=== PATIENT | female | born 1970 | race Caucasian/White ===

== ENCOUNTER 2020-03-14 12:43 | Outpatient (CLI) | payer OTHER, SELFPAY ==
--- NOTE | ~2020-03-14 | CT_ITS ---
EXAMINATION: CT brain wo con DATE: 03/14/2020 13:42 INDICATION: Left head, facial, arm and leg hemiparesthesia for 3 days TECHNIQUE: Computed tomography (CT) of the head was performed without intravenous contrast. The mA wa s adjusted according to patient size. Iterative reconstruction technique was employed. Exam dose: 60 5.33 mGy-cm total exam DLP. COMPARISON: None FINDINGS: No intracranial mass lesion or hemorrhage or cerebrovascular accident, midline shift or mas s effects is detected. Normal ventricular size. Mild bilateral carotid siphon internal carotid artery calcifications. No subdural or epidural hematom a. No fracture or bone destruction of the cranial vault. There is soft tissue thickening of the ethmoid air cells, left greater than right. Remaining paranasa l sinuses and the mastoid air cells are normally developed and aerated. IMPRESSION: No acute intracranial finding Cerebral atherosclerosis Reviewed, dictated and finalized at [facility]. Reviewed, dictated and finalized at [facility].
== END 2020-03-14 12:44 | disposition home or self-care (01) ==
PROVIDERS: PCP Family Medicine; Visit Provider Family Medicine
DX: R20.0 Anesthesia of skin (principal); I67.2 Cerebral atherosclerosis
CPT/HCPCS: 70450

== ENCOUNTER 2020-03-17 08:50 | Inpatient (IN) | payer OTHER, SELFPAY ==
[2020-03-17] VITALS (9 sets, daily range): BP systolic 121–173; BP diastolic 63–97; PULSE 87–109; RESP 15–20; TEMP 36.6–37.1; O2SAT 94–100; BMI 19.0; BMI 19.1
--- NOTE | ~2020-03-17 | MR_ITS ---
EXAMINATION: MR cervical spine wo/w con DATE: 03/19/2020 09:34 INDICATION: Left hemiparesis. Diplopia. TECHNIQUE: Magnetic resonance imaging (MRI) of the cervical spine was performed without and with 10 m L MultiHance intravenous contrast. Sequences included sagittal and axial T2-weighted FSE, sagittal T2 -weighted FS FSE, and sagittal and axial T1-weighted FSE. Postcontrast sequences included sagittal an d axial T1-weighted FS FSE. COMPARISON: None FINDINGS: There is kyphosis of cervical spine. Vertebral body heights are normal. There is mildly dec reased disc height at C4-C5, C5-C6, and C6-C7. The spinal cord signal intensity is normal. The follow ing disc levels are specifically discussed: C2-C3: The disc does not extend beyond the endplate margin. There is no uncovertebral joint osteoarth ritis. There is mild bilateral facet joint osteoarthritis. There is no neural foraminal stenosis. The re is no central canal stenosis. C3-C4: The disc does not extend beyond the endplate margin. There is mild left uncovertebral joint os teoarthritis. There is no facet joint osteoarthritis. There is mild left neural foraminal stenosis. T here is no central canal stenosis. C4-C5: The disc does not extend beyond the endplate margin. There is mild bilateral uncovertebral fadumo nt osteoarthritis. There is mild right facet joint osteoarthritis. There is no neural foraminal steno sis. There is no central canal stenosis. C5-C6: The disc is bulging. There is moderate bilateral uncovertebral joint osteoarthritis. There is no facet joint osteoarthritis. There is mild bilateral neural foraminal stenosis. There is mild centr al canal stenosis with ventral indentation of the spinal cord. C6-C7: The disc is bulging. There is mild bilateral uncovertebral joint osteoarthritis. There is mild bilateral facet joint osteoarthritis. There is no neural foraminal stenosis. There is mild central c anal stenosis. C7-T1: The disc does not extend beyond the endplate margin. There is no uncovertebral joint osteoarth ritis. There is mild bilateral facet joint osteoarthritis. There is no neural foraminal stenosis. The re is no central canal stenosis. IMPRESSION: 1. Normal spinal cord. 2. Mild cervical spondylosis. Reviewed, dictated and finalized at [facility].
--- NOTE | ~2020-03-17 | MR_ITS ---
EXAMINATION: MR brain/brain stem wo/w con DATE: 03/17/2020 14:37 INDICATION: Diplopia. Left hemiparesis for one week. TECHNIQUE: Magnetic resonance imaging (MRI) of the brain and brainstem was performed without and with 10 mL MultiHance intravenous contrast. Sequences included sagittal and axial T1-weighted FSE, axial diffusion-weighted FS EPI, axial T2*-weighted GRE, axial T2-weighted FLAIR Propeller, and axial T2-we ighted Propeller. Postcontrast sequences included axial and coronal T1-weighted FSE. Apparent diffusi on coefficient (ADC) maps were created. COMPARISON: Head CT 03/17/2020 FINDINGS: There are scattered areas of nonspecific increased T2-weighted signal intensity in the cere bral white matter. There is increased T2-weighted signal intensity in the right midbrain. No abnormal contrast enhancement. There is no acute ischemic infarct or intracranial hemorrhage. The ventricles are normal in size. There is mild mucosal thickening in the ethmoid sinuses. The orbits are normal. T he mastoid air cells are normal. IMPRESSION: 1. Increased T2-weighted signal intensity in the right midbrain, likely a subacute or chronic infarct . 2. Mild nonspecific cerebral white matter disease, which likely represents chronic small vessel ische ford disease. Reviewed, dictated and finalized at location [facility]. IMPRESSION: 1. Increased T2-weighted signal intensity in the right midbrain, likely a subac [place] or chronic infarct. 2. Mild nonspecific cerebral white matter disease, which likely represents attendance secretary christine small vessel ischemic disease.
--- NOTE | ~2020-03-17 | CT_ITS ---
EXAMINATION: CTA brain carotid DATE: 03/17/2020 10:13 INDICATION: Left-sided numbness. Diplopia. TECHNIQUE: Computed tomographic angiography (CTA) of the head was performed without and with 100 mL O mnipaque-350 intravenous contrast. CTA of the neck was performed with intravenous contrast. Automated exposure control and iterative reconstruction technique were employed. The dose-length product was 1 686.26 mGy-cm. Maximum intensity projection and volume rendered 3D-reconstructions were created by kim montana technologist on a separate workstation. COMPARISON: Head CT 03/14/2020 FINDINGS: HEAD CTA: There is no intracranial hemorrhage, acute infarction, or abnormal intracranial mass lesion . The ventricles are normal in size. There is mild mucosal thickening in the paranasal sinuses. The o rbits are normal. The mastoid air cells are normal. The vertebral arteries are codominant. There is n o significant stenosis of basilar artery or the posterior cerebral arteries. The posterior communicat ing arteries are normal. There is no significant stenosis of the intracranial internal carotid arteri es or anterior or middle cerebral arteries. Anterior communicating artery is normal. There is no aneu rysm. NECK CTA: Emphysema is noted. There are bilateral breast implants. There are no pathologically enlarg ed lymph nodes. There is no significant stenosis of the vertebral arteries. There is mild plaque in t he proximal external carotid arteries. There is 0% stenosis of the proximal right internal carotid ar jocelyn relative to normal distal artery lumen diameter (NASCET criteria). There is 0% stenosis of the p roximal left internal carotid artery relative to normal distal artery lumen diameter. There is modera te cervical spondylosis. IMPRESSION: 1. Normal brain. No aneurysm or significant intracranial arterial stenosis. 2. 0% stenosis of the proximal internal carotid arteries relative to normal distal artery lumen diame ters (NASCET criteria). Reviewed, dictated and finalized at location [facility]. IMPRESSION: 1. Normal brain. No aneurysm or significant intracranial arterial stenosis. 2. 0% stenosis of the proximal internal carotid arteries relative to normal dis jone artery lumen diameters (NASCET criteria).
--- NOTE | 2020-03-17 09:29 | ED.NEUROSD ---
HPI - Neuro Symptoms/Deficit General Chief Complaint: Neuro Symptoms/Deficit Stated Complaint: Numbness Left Side Time Seen by Provider: 03/17/20 09:20 History of Present Illness HPI Narrative: Patient presents with her for numbness on the left side for 1 week and double vision today. She had a CAT scan on the of the brain which shows calcifications in the cerebral arteries. The numbness on her left side is been for 1 week. Today she woke up with double vision. If he keeps 1 eye shot then she can see better. She has no history of MS.. She has not been sick. She smokes cigarettes, she does not drink alcohol, she does not do drugs. Her only surgery is breast augmentation. Onset (ago): day(s) Timing confirmed by: spouse Location: left arm, left leg and other (Vision) History of same: No Severity: moderate Quality: numb Relieving factors: none Exacerbating factors: none Context: gradual onset On Anticoagulants: No Associated symptoms: denies other symptoms Treatments Prior to Arrival: none Related Data Home Medications Medication Instructions Recorded Confirmed ferrous sulfate [Slow Fe] 142 mg PO DAILY 03/17/20 03/17/20 fluticasone propion-salmeterol 1 inh INHALATION Q12H 03/17/20 03/17/20 [Advair Diskus] levothyroxine 50 mcg PO WEEKLY 03/17/20 03/17/20 Allergies Allergy/AdvReac Type Severity Reaction Status Date / Time Sulfa (Sulfonamide Allergy Unknown Rash Verified 03/17/20 12:04 Antibiotics) Review of Systems Review of Systems: Narrative: CONSTITUTIONAL: Denies fever, chills, or sweats. EYES: She has visual changes, redness, or discharge. ENT: Denies rhinorrhea, congestion, sore throat, or otalgia. CARDIOVASCULAR: Denies chest pain, palpitations, or edema. RESPIRATORY: Denies cough or dyspnea. GASTROINTESTINAL: Denies abdominal pain, nausea, vomiting, or diarrhea. GENITOURINARY: Denies dysuria or hematuria. SKIN: Denies rash or itching. MUSCULOSKELETAL: Denies back pain, joint pain, or myalgia. NEUROLOGIC: Denies headache, but she does have numbness on the left side. . All systems reviewed & are unremarkable except as noted in HPI and below PMFSH Past Medical History Medical History (Updated 03/17/20 @ 09:57 by Maggie Alexander MD) Essential (primary) hypertension Hyperlipidemia Hypothyroidism, unspecified Menometrorrhagia Nicotine dependence, unspecified, uncomplicated Relies on partner vasectomy for contraception Surgical History Surgical History History of breast augmentation Social History Social History Smoking packs per day: 2 Smoking cigarettes per day: 40.0 Years smoked: 35 Smoking pack-years: 70.00 Smoking status: Current every day smoker Tobacco type: cigarettes Second hand tobacco smoke exposure: Yes Smoking end date: 69 Alcohol intake: current Drinks per week: 1 Substance use: never Substance use type: does not use Additional living arrangements comments: Gender identity (if verbalized by the patient): Female Sexual Orientation (if Verbalized by the Patient): Straight or Heterosexual Spiritual care concerns: No Agree to blood products: No Exam Narrative: Exam Narrative: GENERAL: Well-appearing, well-nourished, and in no acute distress. She keeps closing the left eye. HEAD: Normocephalic, atraumatic. EYES: PERRLA and EOMI. ENT: Nares clear, no rhinorrhea or epistaxis. Mucous membranes moist. NECK: Supple. CHEST: Clear to auscultation. No respiratory distress. HEART: Regular rate and rhythm. No murmur heard. Normal peripheral pulses. ABDOMEN: Soft, nontender, nondistended, normal active bowel sounds. EXTREMITIES: Normal range of motion. No edema. SKIN: Warm, dry, no rash. NEURO: No focal deficits. Alert and oriented x3. PSYCH: Normal mood and affect. Course Vital Signs Vital signs: Vital Signs Tem
[2020-03-17] MEDS: methylPREDNISolone SOD SUCC 125 MG VIAL IV PUSH (09:32)
[2020-03-17 09:40] LABS: Basophils Absolute Auto 0.1 K/mm3 (0.0-0.1); Eosinophils Absolute Auto 0.4 K/mm3 (0-0.3); Eosinophils Percent Auto 4.7 % (0-4.4); Hematocrit 51.1 % (37.0-47.0); Hemoglobin 16.6 g/dL (12.0-15.0); Immature Granulocyte Absolute 0.02 K/mm3 (0.00-0.031); Immature Granulocyte Percent A 0.3 % (0-0.5); Lymphocytes Absolute Auto 1.72 K/mm3 (0.9-3.2); Lymphocytes Percent Auto 22.4 % (18.3-44.2); Mean Corpuscular HGB Conc 32.5 g/dl (32-36); Mean Corpuscular Hemoglobin 30.2 pg (26-34); Mean Corpuscular Volume 92.9 fl (80-100); Mean Platelet Volume 10.9 fl (7.4-10.4); Monocytes Absolute Auto 0.6 K/mm3 (0.1-0.6); Monocytes Percent Auto 7.3 % (2.6-8.5); Neutrophils Absolute Auto 4.9 K/mm3 (1.3-6.7); Neutrophils Percent Auto 64.3 % (45.5-73.1); Platelet Count Result 250 k/mm3 (150-375); Red Cell Distribution Width 13.2 % (11.5-14.5); White Blood Count 7.7 K/mm3 (4.5-10.0)
[2020-03-17 09:54] LABS: Alanine Aminotransferase 14 U/L (4-35); Albumin Level 4.5 g/dL (3.5-5.1); Alkaline Phosphatase 63 U/L (38-126); Anion Gap 7 mmol/L (8-16); Aspartate Amino Transferase 23 U/L (14-36); Bilirubin,Total 0.2 mg/dL (0.2-1.3); Blood Urea Nitrogen 14 mg/dL (7-17); Calcium 9.5 mg/dL (8.4-10.2); Carbon Dioxide 29 mmol/L (22-30); Chloride 103 mmol/L (98-107); Estimated CRCL calculation 60 ml/min; Estimated Glomerular Filt Rate > 60; Glucose 107 mg/dL (65-105); Potassium 4.2 mmol/L (3.4-5.0); Sodium 139 mmol/L (137-145)
[2020-03-17 09:56] LABS: D Dimer 0.45 ug/mL (<0.48)
[2020-03-17 10:00] LABS: Estimated CRCL calculation 60 ml/min; Estimated Glomerular Filt Rate > 60
--- NOTE | 2020-03-17 12:02 | ADMGEN ---
This patient, Love Blake, was admitted to 2 Medical Room 241-01. Patient/family oriented to hospital policies and general routines including ID bracelet, bed and alarms, visiting hours, pain management, procedures, bathroom and other care routines, personal items, smoking policy, room service/diet, and visiting hours. Valuables list has been completed. Information on how to activate the Rapid Response Team has been discussed. Patient/Family are encouraged to report perceived risks to care and to ask questions if they do not understand what they are told or what they should do.
--- NOTE | 2020-03-17 17:00 | WPDNEURCNPN ---
Assessment and Plan Assessment and plan (1) Double vision: Code(s): H53.2 - Diplopia Status: Acute (2) Paresthesia: Code(s): R20.2 - Paresthesia of skin Status: Acute (3) Numbness on left side: Code(s): R20.0 - Anesthesia of skin Status: Acute Additional Plan continue investigation with mri of brain ,c. spine and thracic spine befpre any spinal tap is considered Consult date: 03/17/20 Time Seen: 16:45 HPI: Love Blake is a 49 year old female Admitted to the hospital through the emergency room where she presented with the complaints of numbness of the left side of 1 week duration along with double vision. On the day of visit to the emergency room she developed double vision definitely improving with 1 eye closed he gave no history of generalized symptomatology in the past she has undergone breast surgery but no history of malignancy PMFSH Past Medical History Medical History (Updated 03/17/20 @ 09:57 by Maggie Alexander MD) Essential (primary) hypertension Hyperlipidemia Hypothyroidism, unspecified Menometrorrhagia Nicotine dependence, unspecified, uncomplicated Relies on partner vasectomy for contraception Surgical History Surgical History History of breast augmentation Social History Social History Smoking packs per day: 2 Smoking cigarettes per day: 40.0 Years smoked: 35 Smoking pack-years: 70.00 Smoking status: Current every day smoker Tobacco type: cigarettes Second hand tobacco smoke exposure: Yes Smoking end date: 69 Alcohol intake: current Drinks per week: 1 Substance use: never Substance use type: does not use Additional living arrangements comments: Gender identity (if verbalized by the patient): Female Sexual Orientation (if Verbalized by the Patient): Straight or Heterosexual Spiritual care concerns: No Agree to blood products: No Meds Home Medications and Allergies Home Medications Medication Instructions Recorded Confirmed Type levothyroxine 25 mcg tablet 25 mcg PO DAILY #115 tablet 06/21/19 03/17/20 Rx metoprolol succinate 25 mg 25 mg PO DAILY #30 tablet 06/21/19 03/17/20 Rx tablet,extended release 24 hr levothyroxine 200 mcg tablet 200 mcg PO DAILY #90 tablet 09/22/19 03/17/20 Rx albuterol sulfate 90 mcg/actuation 1 inhalation INHALATION Q4H PRN 03/01/20 03/17/20 Rx aerosol inhaler #18 gm ferrous sulfate [Slow Fe] 142 mg PO DAILY 03/17/20 03/17/20 History fluticasone propion-salmeterol 1 inh INHALATION Q12H 03/17/20 03/17/20 History [Advair Diskus] levothyroxine 50 mcg PO WEEKLY 03/17/20 03/17/20 History Allergies Allergy/AdvReac Type Severity Reaction Status Date / Time Sulfa (Sulfonamide Allergy Unknown Rash Verified 03/17/20 12:04 Antibiotics) Vital Signs Vital Signs - 24 hr 03/17/20 09:01 03/17/20 09:08 03/17/20 10:11 Temperature 37.1 C Pulse Rate 99 92 91 Respiratory Rate 20 15 17 Blood Pressure 151/83 H 173/97 H 168/92 H Pulse Oximetry 96 100 100 03/17/20 11:06 03/17/20 11:37 03/17/20 12:00 Temperature 36.6 C Pulse Rate 87 88 87 Respiratory Rate 18 18 16 Blood Pressure 154/96 H 152/96 H 137/70 Pulse Oximetry 98 99 95 03/17/20 13:45 Temperature 36.7 C Pulse Rate 105 H Respiratory Rate 16 Blood Pressure 121/63 Pulse Oximetry 94 Exam Narrative: Exam Narrative: examination revealed her to be awake alert cooperative in no obvious acute distress head normocephalic with no cranial bruit your throat examination normal neck is supple with no cervical bruit no thyromegaly no lymphadenopathy heart regular with no murmur lungs clear to auscultation abdomen is soft with no organomegaly normal bowel sounds neurological examination revealed her to be awake alert oriented x3 the speech nor dysphasic not dysarthric not dysphonic pupils were round regular
[2020-03-17] MEDS: NICOTINE (*PBKC) 21 MG PATCH 1 PATCH TRANSDERM (17:05)
--- NOTE | 2020-03-17 22:15 | PM.IMHP ---
H&P: HPI History of Present Illness Date/Time: 03/17/20 22:15 Chief complaint: DOUBLE VISION AND LEFT WEAKNESS,RULE OUT MS Narrative: This is a 49 year old female with known history of HTN and hypothyroidism who presented to the hospital with a complaint of left sided numbness and tingling that has been ongoing for the past week. Her symptoms started about 1 week ago with numbness of the tips of her left fingers and left toes and over the next two days progressed to include the whole left side of her body and face. She saw her PCP about her symptoms as she believed she might have had shingles and was sent to get a CT scan of her brain. The patient was instructed to come to the ER if her symptoms worsened and today she woke up with double vision when she gazed to the left side. She denies any recent head trauma, seizure like activity or passing out. She also has no previous history of strokes or other similar neurological symptoms. Neurology was consulted by ER provider and she was admitted to the hospital for further care. MRI demonstrated increased T2-weighted signal intensity in the right midbrain, likely a subacute or chronic infarct. Review of Systems Review of Systems: All systems reviewed & are unremarkable except as noted in HPI and below PMFSH Past Medical History Medical History Essential (primary) hypertension Hyperlipidemia Hypothyroidism, unspecified Menometrorrhagia Nicotine dependence, unspecified, uncomplicated Relies on partner vasectomy for contraception Surgical History Surgical History History of breast augmentation Family History Family History Father Family history of lung cancer Other Family history of emphysema Family history of malignant neoplasm of testis Family history of thyroid disease Social History Social History Smoking packs per day: 2 Smoking cigarettes per day: 40.0 Years smoked: 35 Smoking pack-years: 70.00 Smoking status: Current every day smoker Tobacco type: cigarettes Second hand tobacco smoke exposure: Yes Smoking end date: 69 Alcohol intake: current Drinks per week: 1 Substance use: never Substance use type: does not use Additional living arrangements comments: Gender identity (if verbalized by the patient): Female Sexual Orientation (if Verbalized by the Patient): Straight or Heterosexual Spiritual care concerns: No Agree to blood products: No Meds Home Medications and Allergies Home Medications Medication Instructions Recorded Confirmed Type levothyroxine 25 mcg tablet 25 mcg PO DAILY #115 tablet 06/21/19 03/17/20 Rx metoprolol succinate 25 mg 25 mg PO DAILY #30 tablet 06/21/19 03/17/20 Rx tablet,extended release 24 hr levothyroxine 200 mcg tablet 200 mcg PO DAILY #90 tablet 09/22/19 03/17/20 Rx albuterol sulfate 90 mcg/actuation 1 inhalation INHALATION Q4H PRN 03/01/20 03/17/20 Rx aerosol inhaler #18 gm ferrous sulfate [Slow Fe] 142 mg PO DAILY 03/17/20 03/17/20 History fluticasone propion-salmeterol 1 inh INHALATION Q12H 03/17/20 03/17/20 History [Advair Diskus] levothyroxine 50 mcg PO WEEKLY 03/17/20 03/17/20 History Allergies Allergy/AdvReac Type Severity Reaction Status Date / Time Sulfa (Sulfonamide Allergy Unknown Rash Verified 03/17/20 12:04 Antibiotics) Vital Signs Vital Signs - 24 hr 03/17/20 09:01 03/17/20 09:08 03/17/20 10:11 Temperature 37.1 C Pulse Rate 99 92 91 Respiratory Rate 20 15 17 Blood Pressure 151/83 H 173/97 H 168/92 H Pulse Oximetry 96 100 100 03/17/20 11:06 03/17/20 11:37 03/17/20 12:00 Temperature 36.6 C Pulse Rate 87 88 87 Respiratory Rate 18 18 16 Blood Pressure 154/96 H 152/96 H 137/70 Pulse Oximetry 98 99 95 03/17/20
[2020-03-17] MEDS: ASPIRIN 325 MG ENTERIC TABLET PO (23:25)
[2020-03-17] MEDS: ATORVASTATIN 20 MG TABLET PO (23:25)
[2020-03-18] VITALS (10 sets, daily range): BP systolic 117–132; BP diastolic 58–71; PULSE 80–102; RESP 14–16; TEMP 36.4–36.8; O2SAT 95–99
--- NOTE | 2020-03-18 | ECHO_ITS ---
Patient Info Name: Love Blake Age: 49 years : 1970 Gender: Female Ht: 65 in Wt: 115 lbs BSA: 1.54 m2 HR: 95 bpm BP: 117 / 66 mmHg Technical Quality: Good Exam Date: 03/18/2020 8:14 AM Exam Location: [facility] Pulmonary Exam Room: [facility] [place] Patient Status: Inpatient Admit Date: 03/17/2020 Staff Ordering Physician: Santino Adrian MD Kiln Worker: Zenaida Soliman RDCS Attending Provider: Eliana Duke PA-C Exam Type: CA echo doppler w bubble study Study Info Complete two-dimensional, color flow and Doppler transthoracic echocardiogram is performed with agitated saline. Contrast/Agitated Saline Contrast/Ag. Saline: Agitated Saline Amount: 20.00 ml Summary 1. Left ventricular chamber dimension is normal. 2. Left ventricular systolic function is normal, estimated at 65-70%. 3. There is moderately increased left ventricular wall thickness. 4. The left ventricular diastolic function is grade I diastolic dysfunction. 5. E/e' 11 is mildly elevated. 6. There is mild aortic valve sclerosis. 7. Mild pulmonary hypertension, estimated pulmonary arterial systolic pressure is 44 mmHg. 8. Dilated inferior vena cava with >50% collapse upon inspiration consistent with elevated right atrial pressure, 10 mmHg. Left Ventricle E/e' 11 is mildly elevated. Left ventricular chamber dimension is normal. Left ventricular systolic function is normal, estimated at 65-70%. There is moderately increased left ventricular wall thickness. The left ventricular diastolic function is grade I diastolic dysfunction. Right Ventricle Right ventricular chamber dimension is normal. Right ventricular systolic function is normal. Left Atria Left atrial chamber dimension is normal. Right Atria Right atrial chamber dimension is normal. Atrial Septum Agitated saline injection with and without valsalva maneuver opacified right sided cardiac chambers without shunt to left sided cardiac chambers. Therefore no patent foramen ovale or atrial septal defect. Intact interatrial septum visualized by color flow and agitated saline imaging. Aortic Valve The aortic valve is trileaflet. There is mild aortic valve sclerosis. There is no aortic valve stenosis. There is no aortic valve regurgitation. Pulmonic Valve There is no pulmonic regurgitation. Mitral Valve There is no mitral valve stenosis. There is no mitral valve regurgitation. Tricuspid Valve There is no tricuspid valve regurgitation. Mild pulmonary hypertension, estimated pulmonary arterial systolic pressure is 44 mmHg. Pericardium/Pleural There is no pericardial effusion. Inferior Vena Cava Dilated inferior vena cava with >50% collapse upon inspiration consistent with elevated right atrial pressure, 10 mmHg. Aorta The aortic root size at the sinus of Valsalva is normal. Left Ventricular Outflow Tract Name Value Normal LVOT 2D LVOT Diameter 2.0 cm LVOT Doppler LVOT Peak Gradient 4 mmHg LVOT Mean Gradient 3 mmHg LVOT VTI 22 c
[2020-03-18] MEDS: LEVOTHYROXINE SODIUM 75 MCG TABLET 225 MCG PO (05:17)
[2020-03-18 06:09] LABS: Anion Gap 5 mmol/L (8-16); Blood Urea Nitrogen 19 mg/dL (7-17); Calcium 9.3 mg/dL (8.4-10.2); Carbon Dioxide 25 mmol/L (22-30); Chloride 107 mmol/L (98-107); Cholesterol 159 mg/dL (0-200); Estimated CRCL calculation 68 ml/min; Estimated Glomerular Filt Rate > 60; Glucose 113 mg/dL (65-105); HDL Direct 59 mg/dL; Potassium 3.9 mmol/L (3.4-5.0); Sodium 137 mmol/L (137-145); Triglycerides 123 mg/dL (<150)
[2020-03-18 06:18] LABS: Basophils Percent Auto 0.2 % (0.2-1.2); Eosinophils Absolute Auto 0.1 K/mm3 (0-0.3); Eosinophils Percent Auto 0.6 % (0-4.4); Hematocrit 45.1 % (37.0-47.0); Hemoglobin 14.8 g/dL (12.0-15.0); Immature Granulocyte Absolute 0.05 K/mm3 (0.00-0.031); Immature Granulocyte Percent A 0.3 % (0-0.5); Lymphocytes Absolute Auto 1.61 K/mm3 (0.9-3.2); Lymphocytes Percent Auto 11.2 % (18.3-44.2); Mean Corpuscular HGB Conc 32.8 g/dl (32-36); Mean Corpuscular Hemoglobin 29.6 pg (26-34); Mean Corpuscular Volume 90.2 fl (80-100); Monocytes Percent Auto 6.9 % (2.6-8.5); Neutrophils Absolute Auto 11.6 K/mm3 (1.3-6.7); Neutrophils Percent Auto 80.8 % (45.5-73.1); Platelet Count Result 255 k/mm3 (150-375); Red Cell Distribution Width 13.1 % (11.5-14.5); White Blood Count 14.4 K/mm3 (4.5-10.0)
[2020-03-18 06:21] LABS: LDL Cholesterol Direct 69 mg/dL
[2020-03-18 07:01] LABS: Thyroid Stimulating Hormone Reflex < 0.015 uIU/mL (0.465-4.68)
[2020-03-18 07:57] LABS: Free T4 Free Thyroxine Reflex 2.33 ng/dL (0.78-2.19)
[2020-03-18 09:20] LABS: Hemoglobin A1C 5.4 % (<5.7)
[2020-03-18] MEDS: FLUTICASONE/SALMETEROL 115-21 MCG INHALER 1 PUFF 2 PUFF INHALATION ×2 (09:41→20:03)
[2020-03-18] MEDS: NICOTINE (*PBKC) 21 MG PATCH 1 PATCH TRANSDERM (09:44)
[2020-03-18] MEDS: METOPROLOL SUCCINATE EXT REL 25 MG TABCR PO (09:44)
[2020-03-18] MEDS: ASPIRIN 81 MG ENTERIC TABLET PO (09:44)
[2020-03-18] MEDS: FERROUS SULFATE DRIED 142 MG TABCR PO (09:44)
--- NOTE | 2020-03-18 11:30 | PM.IMPN ---
Progress Note: A&P Assessment and Plan (1) Acute CVA (cerebrovascular accident): Code(s): I63.9 - Cerebral infarction, unspecified Status: Acute Assessment and Plan: She had left sided numbness and diplopia for 1 week. She had a head CT on 03/14 which showed no Acute findings. Head and neck CTA showed no stenosis of the internal carotid arteries normal brain findings. MRI shows increased signal intensity suggesting likely a subacute or chronic infarct. lipid panel is within normal limits. A1c is 5.4. Neurology has been consulted recommendations are appreciated. MRI of the cervical spine has been ordered to evaluate for any possible demyelinating disease. Continue aspirin and atorvastatin daily (2) Essential (primary) hypertension: Code(s): I10 - Essential (primary) hypertension Status: Chronic Assessment and Plan: Blood pressures were elevated at presentation but have been fairly well controlled today. Continue metoprolol (3) Hypothyroidism, unspecified: Qualifiers: Hypothyroidism type: unspecified Qualified Code(s): E03.9 - Hypothyroidism, unspecified Code(s): E03.9 - Hypothyroidism, unspecified Status: Chronic Assessment and Plan: TSH is low and free T4 is very mildly high. PCP has been adjusting thyroid medication regimen. At this time will not make any changes and will allow for further follow-up by PCP as an outpatient with repeat monitoring in several weeks. (4) Tobacco dependence: Code(s): F17.200 - Nicotine dependence, unspecified, uncomplicated Status: Chronic Assessment and Plan: She smokes 2 packs per day. She has been educated on smoking cessation. Continue to reinforce. Nicotine patch. Subjective Date/time seen: 03/18/20 11:30 Interval history: Date of service: 03/18/2020 She is feeling well today. She continues to endorse numbness and tingling in her left fingertips and toes. She denies weakness in the extremities. She has not had any dizziness or lightheadedness today. She has no headache, no confusion, no difficulty speaking, difficulty swallowing, facial drooping, loss of coordination or balance. She complains of diplopia in her left visual field, only when she is looking with both eyes open. If she closes the right or left eye individually, her vision is clear in the open eye. She is able to read my name badge clearly. She denies nausea, vomiting, fever, chills, abdominal pain, cough, shortness of breath, chest pain, bleeding, bruising, dysuria, hematuria, diarrhea, or constipation. Her appetite has been good. Review of Systems Review of Systems: Narrative: A 12 point review of systems was reviewed with pertinent positives and negatives as per HPI. Exam Narrative: Exam Narrative: Ms. Blake is a well nourished 49 year old female who is lying supine in bed. She appears comfortable and is in NARD. HR 99, BP 117/66, RR 16, T 97.5, 95% on room air Neuro: awake, alert and oriented x4, speech clear, CN II-XII intact, able to perform rapid alternating movements and finger to nose, strength 5/5 throughout, steersman strength equal bilaterally HEENMT: normocephalic, atraumatic, EOMI, sclerae anicteric, moist oral mucosa, tongue midline Neck: supple, no lymphadenopathy Respiratory: clear to auscultation bilaterally, nonlabored breathing Cardio: regular rate, regular rhythm with S1-S2 Abdomen: nondistended, normoactive bowel sounds, soft, nontender to palpation, no rigidity or guarding Extremities: no edema, erythema, cyanosis, clubbing, no pain to palpation, DP pulses 2+ bilaterally Skin: no rashes or lesions, warm and dry Psych: appropriate mood and affect Objective Data Vital Signs Vital Signs: Vital Signs - 24 hr 03/17/20 11:37 03/17/20 12:00 03/17/20 13:45 Temperature 97.9 F 98.0 F Pulse Rate 88 87 105 H Respiratory Rate 18 16 16 Blood Pressure 152/96 H 137/70 121/63 Puls
--- NOTE | 2020-03-18 12:25 | WPDNEUROPN ---
Progress Note: A&P Assessment and Plan (1) Tobacco dependence: Code(s): F17.200 - Nicotine dependence, unspecified, uncomplicated Status: Chronic (2) Acute CVA (cerebrovascular accident): Code(s): I63.9 - Cerebral infarction, unspecified Status: Acute Additional Plan continuation of atorvastatin and aspirin and also obtaining the MRI of cervical spine to rule out the remote possibility of demyelinating disease even though MRI of the brain is negative Objective Data Vital Signs Vital Signs: Vital Signs - 24 hr 03/17/20 13:45 03/17/20 21:23 03/17/20 21:36 Temperature 36.7 C 36.6 C Pulse Rate 105 H 105 H 109 H Respiratory Rate 16 16 Blood Pressure 121/63 135/81 Pulse Oximetry 94 95 03/18/20 00:00 03/18/20 04:00 03/18/20 06:22 Temperature 36.4 C L Pulse Rate 102 H 93 99 Respiratory Rate 16 Blood Pressure 117/66 Pulse Oximetry 95 03/18/20 08:00 03/18/20 09:44 Temperature Pulse Rate 95 80 Respiratory Rate Blood Pressure Pulse Oximetry Intake/Output Intake/Output: Intake & Output 03/15/20 03/16/20 03/17/20 03/18/20 23:59 23:59 23:59 23:59 Intake Total 570 570 Output Total 250 850 Balance 320 -280 Meds/Results Medications: Active Medications Generic Name Dose Route Start Last Admin Trade Name Freq PRN Reason Stop Dose Admin Acetaminophen 650 mg 03/17/20 11:23 Tylenol Tablet PO Q4H PRN Mild Pain (1-3) or Fever Albuterol 1 puff 03/17/20 22:14 Proventil Hfa INHALATION Q4H PRN shortness of breath or wheezing Aspirin 81 mg 03/18/20 09:00 03/18/20 09:44 Aspirin Ec PO 81 mg QAM JULIA Administration Atorvastatin Calcium 20 mg 03/17/20 22:15 03/17/20 23:25 Lipitor PO 20 mg HS JULIA Administration Ferrous Sulfate 142 mg 03/18/20 09:00 03/18/20 09:44 Slow Fe 142 Mg PO 142 mg DAILY JULIA Administration Levothyroxine Sodium 250 mcg 03/19/20 06:30 Synthroid PO Yuan@0630 JULIA Levothyroxine Sodium 225 mcg 03/18/20 06:30 03/18/20 05:17 Synthroid PO 225 mcg Som@0630 JULIA Administration Metoprolol Succinate 25 mg 03/18/20 09:00 03/18/20 09:44 Toprol Xl PO 25 mg DAILY JULIA Administration Nicotine 1 patch 03/17/20 15:40 03/18/20 09:44 Nicoderm Cq 21 Mg TRANSDERM 1 patch QAM JULIA Administration Ondansetron HCl 4 mg 03/17/20 11:23 Zofran Inj IV PUSH Q4H PRN Nausea Fluticasone/Salmeterol 2 puff 03/18/20 08:00 03/18/20 09:41 Advair Hfa 115-21 Mcg Inhaler (*Sp) INHALATION 2 puff Q12HRT JULIA Administration Radiology Results: ITS Impressions Head/Neck CTA 03/17/20 10:21 IMPRESSION: 1. Normal brain. No aneurysm or significant intracranial arterial stenosis. 2. 0% stenosis of the proximal internal carotid arteries relative to normal distal artery lumen diameters (NASCET criteria). Brain MRI 03/17/20 14:38 IMPRESSION: 1. Increased T2-weighted signal intensity in the right midbrain, likely a subacute or chronic infarct. 2. Mild nonspecific cerebral white matter disease, which likely represents chronic small vessel ischemic disease. Labs Labs: Laboratory Results - last 24 hr 03/18/20 03/18/20 03/18/20 05:16 05:16 05:16 WBC 14.4 H RBC 5.00 Hgb 14.8 Hct 45.1 MCV 90.2 MCH 29.6 MCHC 32.8 RDW 13.1 Plt Count 255 MPV 11.0 H Immature Gran % (Auto) 0.3 Neut % (Auto) 80.8 H Lymph % (Auto) 11.2 L George % (Auto) 6.9 Eos % (Auto) 0.6 Baso % (Auto) 0.2 Lymph # (Auto) 1.61 George # (Auto) 1.0 H Eos # (Auto) 0.1 Baso # (Auto) 0.0 Abs Immat Gran (auto) 0.05 H Absolute Neuts (auto) 11.6 H Absolute Nucleated RBC 0.0 Nucleated RBC % 0.0 Sodium 137 Potassium 3.9 Chloride 107 Carbon Dioxide 25 Anion Gap 5 L BUN 19 H Creatinine 0.70 Estim Creat Clear Calc 68 Estimated GFR > 60 Glucose 113 H Hemoglobin A1c
[2020-03-18] MEDS: ATORVASTATIN 20 MG TABLET PO (20:37)
[2020-03-19] VITALS (8 sets, daily range): BP systolic 131–133; BP diastolic 68–75; PULSE 79–87; RESP 14–16; TEMP 36.2–36.6; O2SAT 94–95
[2020-03-19] MEDS: LEVOTHYROXINE SODIUM 125 MCG TABLET 250 MCG PO (05:14)
[2020-03-19 05:45] LABS: Basophils Percent Auto 0.6 % (0.2-1.2); Eosinophils Absolute Auto 0.2 K/mm3 (0-0.3); Eosinophils Percent Auto 2.9 % (0-4.4); Hematocrit 45.1 % (37.0-47.0); Hemoglobin 14.7 g/dL (12.0-15.0); Immature Granulocyte Absolute 0.02 K/mm3 (0.00-0.031); Immature Granulocyte Percent A 0.3 % (0-0.5); Lymphocytes Absolute Auto 1.92 K/mm3 (0.9-3.2); Lymphocytes Percent Auto 29.1 % (18.3-44.2); Mean Corpuscular HGB Conc 32.6 g/dl (32-36); Mean Corpuscular Hemoglobin 30.2 pg (26-34); Mean Corpuscular Volume 92.8 fl (80-100); Mean Platelet Volume 11.1 fl (7.4-10.4); Monocytes Absolute Auto 0.5 K/mm3 (0.1-0.6); Monocytes Percent Auto 7.1 % (2.6-8.5); Platelet Count Result 202 k/mm3 (150-375); Red Blood Count 4.86 M/mm3 (4.2-5.4); Red Cell Distribution Width 13.4 % (11.5-14.5); White Blood Count 6.6 K/mm3 (4.5-10.0)
[2020-03-19 06:01] LABS: Anion Gap 3 mmol/L (8-16); Blood Urea Nitrogen 20 mg/dL (7-17); Calcium 9.2 mg/dL (8.4-10.2); Carbon Dioxide 31 mmol/L (22-30); Chloride 105 mmol/L (98-107); Estimated CRCL calculation 60 ml/min; Estimated Glomerular Filt Rate > 60; Glucose 88 mg/dL (65-105); Potassium 4.1 mmol/L (3.4-5.0); Sodium 139 mmol/L (137-145)
[2020-03-19] MEDS: FLUTICASONE/SALMETEROL 115-21 MCG INHALER 1 PUFF 2 PUFF INHALATION (08:07)
[2020-03-19] MEDS: FERROUS SULFATE DRIED 142 MG TABCR PO (09:40)
[2020-03-19] MEDS: METOPROLOL SUCCINATE EXT REL 25 MG TABCR PO (09:40)
[2020-03-19] MEDS: ASPIRIN 81 MG ENTERIC TABLET PO (09:40)
[2020-03-19] MEDS: NICOTINE (*PBKC) 21 MG PATCH 1 PATCH TRANSDERM (09:41)
--- NOTE | 2020-03-19 14:12 | WPDNEUROPN ---
Progress Note: A&P Assessment and Plan (1) Tobacco dependence: Code(s): F17.200 - Nicotine dependence, unspecified, uncomplicated Status: Chronic (2) Double vision: Code(s): H53.2 - Diplopia Status: Acute (3) Paresthesia: Code(s): R20.2 - Paresthesia of skin Status: Acute (4) Numbness on left side: Code(s): R20.0 - Anesthesia of skin Status: Acute (5) Essential (primary) hypertension: Code(s): I10 - Essential (primary) hypertension Status: Chronic (6) Acute CVA (cerebrovascular accident): Code(s): I63.9 - Cerebral infarction, unspecified Status: Acute Additional Plan stable/home Exam Const: General: cooperative, healthy appearing, comfortable and no acute distress Eyes: General: appearance normal, both eyes and all related structures Neck: Neck: normal visual inspection, full ROM and no lymphadenopathy Thyroid: thyroid normal Resp: Auscultation: clear to auscultation bilaterally Cardio: Rate: regular rate Rhythm: regular rhythm Skin: General skin exam: no rashes or lesions noted Neuro: General: patient oriented x3, gait normal, moves all extremities, no focal motor deficits and CN's II-XI intact bilaterally Cranial nerves: Yes CN's II-XII intact bilaterally, Yes Equal, round and reactive pupils present, Yes Nystagmus not present, Yes Normal facial strength present, Yes Midline tongue present, Yes Normal hearing present and Yes Ability to bilaterally rotate head present Cognition (Neuro): normal cognition Speech: normal speech Gait exam (Neuro): Normal gait present Motor exam (neuro): 5/5 motor strength present throughout Sensory Exam: normal sensation Coordination: [id number] test normal Psych: Appearance: grossly normal Speech and movement: Normal speech and movement present Affect: normal affect Attitude: cooperative Thought process: Normal thought process present Thought content: Yes Normal thought content present Insight: Good insight present (Psych) Judgement: Good judgement present (Psych) Objective Data Vital Signs Vital Signs: Vital Signs - 24 hr 03/18/20 16:00 03/18/20 20:00 03/18/20 21:26 Temperature 36.7 C Pulse Rate 82 88 88 Respiratory Rate 16 Blood Pressure 132/58 L Pulse Oximetry 95 03/19/20 00:00 03/19/20 04:00 03/19/20 06:05 Temperature 36.2 C L Pulse Rate 85 87 84 Respiratory Rate 16 Blood Pressure 133/68 Pulse Oximetry 94 03/19/20 08:00 03/19/20 09:40 03/19/20 12:00 Temperature Pulse Rate 80 84 79 Respiratory Rate Blood Pressure Pulse Oximetry Intake/Output Intake/Output: Intake & Output 03/16/20 03/17/20 03/18/20 03/19/20 23:59 23:59 23:59 23:59 Intake Total 570 1550 610 Output Total 250 1150 1150 Balance 320 400 -540 Meds/Results Medications: Active Medications Generic Name Dose Route Start Last Admin Trade Name Freq PRN Reason Stop Dose Admin Acetaminophen 650 mg 03/17/20 11:23 Tylenol Tablet PO Q4H PRN Mild Pain (1-3) or Fever Albuterol 1 puff 03/17/20 22:14 Proventil Hfa INHALATION Q4H PRN shortness of breath or wheezing Aspirin 81 mg 03/18/20 09:00 03/19/20 09:40 Aspirin Ec PO 81 mg QAM JULIA Administration Atorvastatin Calcium 20 mg 03/17/20 22:15 03/18/20 20:37 Lipitor PO 20 mg HS JULIA Administration Ferrous Sulfate 142 mg 03/18/20 09:00 03/19/20 09:40 Slow Fe 142 Mg PO 142 mg DAILY JULIA Administration Levothyroxine Sodium 250 mcg 03/19/20 06:30 03/19/20 05:14 Synthroid PO 250 mcg Yuan@0630 JULIA Administration Levothyroxine Sodium 225 mcg 03/18/20 06:30 03/18/20 05:17 Synthroid PO 225 mcg MoTuWeThFrSa@0630 JULIA Administration Metoprolol Succinate 25 mg 03/18/20 09:00 03/19/20 09:40 Toprol Xl PO 25 mg DAILY JULIA Administration Nicotine 1 patch 03/17/20 15:40 03/19/20 09:41 Nicoderm Cq 21 Mg TRANSDERM 1 patch QAM
--- NOTE | 2020-03-19 15:28 | PM.DS ---
DS: Admitting Diagnosis Admitting Diagnosis Admitting Diagnosis: DOUBLE VISION AND LEFT-SIDE WEAKNESS DS: Discharge Diagnosis Discharge Diagnosis (1) Acute CVA (cerebrovascular accident): Code(s): I63.9 - Cerebral infarction, unspecified Status: Acute Assessment and Plan: She had left sided numbness and diplopia for 1 week. She had a head CT on 03/14 which showed no acute findings. Head and neck CTA showed no stenosis of the internal carotid arteries and normal brain findings. Echo with bubble study did not show evidence of intracardiac shunt. MRI shows increased signal intensity in the right midbrain suggesting likely a subacute or chronic infarct, with differential including multiple sclerosis. Therefore, MRI of cervical spine was performed to evaluate for demyelinating disease and was negative. Lipid panel is within normal limits. A1c is 5.4. Blood pressures were generally well controlled. She was started on daily low-dose aspirin and atorvastatin. she was educated on lifestyle changes and smoking cessation. She will follow-up with Dr. Magaña in 6-8 weeks. (2) Essential (primary) hypertension: Code(s): I10 - Essential (primary) hypertension Status: Chronic Assessment and Plan: Continue metoprolol (3) Hypothyroidism, unspecified: Qualifiers: Hypothyroidism type: unspecified Qualified Code(s): E03.9 - Hypothyroidism, unspecified Code(s): E03.9 - Hypothyroidism, unspecified Status: Chronic Assessment and Plan: TSH is low and free T4 is very mildly high. Per review of notes, PCP has been adjusting thyroid medication regimen. At this time will not make any changes and will allow for further follow-up by PCP as an outpatient with repeat monitoring in several weeks. (4) Tobacco dependence: Code(s): F17.200 - Nicotine dependence, unspecified, uncomplicated Status: Chronic Assessment and Plan: She smokes 2 packs per day. I counseled her on smoking cessation for 5 minutes. She is interested in quitting and has actually already discussed this with her PCP. Her PCP prescribed Chantix and she is awaiting insurance authorization to begin this medication. She is motivated to quit smoking. DS: Summary Hospital Course Reason for hospitalization: Left-sided numbness Hospital Course: Date of admission: 03/17/2020 Date of discharge: 03/19/2020 Love Blake is a 49-year-old female smoker with a history of hypertension, hyperlipidemia, hypothyroidism who presented to the emergency department on 03/17/2020 with complaints of numbness on the left side ongoing for 1 week with associated diplopia. She began having numbness in her left fingertips and toes, then reports numbness spread up her entire left side and then returned to only fingers and toes. She has been evaluated for this by her primary care provider and had a head CT on 03/14/2020 which was negative. Follow-up MRI was ordered but had not yet been approved by insurance prior to presentation at the emergency department. At presentation, vitals were stable. She was admitted to the hospitalist service for further evaluation and management and was seen in consultation by neurology with workup as described above. Her symptoms improved and she began to feel back to her baseline with the exception of minimal tingling in the left fingers. I spent extensive time with her discussing lifestyle changes and importance of smoking cessation. Given her overall improvement, she was felt to no longer require inpatient care. We discussed her medications and worrisome signs and symptoms for which she should return. She will need to follow-up with neurology in 6-8 weeks. All of her questions were answered. She was discharged in hemodynamically stable condition on 03/19/2020. Time Spent with Patient Time attestation: Total time spent providing and/or coordinating discharge services: Exam Narrativ
== END 2020-03-19 16:20 | disposition home or self-care (01) | DRG 66 ==
LOC: ANHED 11:28 → ANH2MED 13:14
PROVIDERS: Family Medicine; Admitting Provider Internal Medicine; Emergency Provider Emergency Medicine; PCP Family Medicine; Visit Provider Physician Assistant
DX: I63.9 Cerebral infarction, unspecified (principal); R40.2412 Glasgow coma scale score 13-15, at arrival to emergency department; I10 Essential (primary) hypertension; E03.9 Hypothyroidism, unspecified; F17.210 Nicotine dependence, cigarettes, uncomplicated; E78.5 Hyperlipidemia, unspecified; Z79.899 Other long term (current) drug therapy; Z88.2 Allergy status to sulfonamides
CPT/HCPCS: 36415; 70450; 70496; 70498; 70553; 72156; 80048; 80053; 80061; 83036; 84439; 84443; 85025; 85380; 93306; 94640; 96374; 96375; 99285; A9270; A9577; J2930; Q9967

== ENCOUNTER → 2020-09-22 10:32 | Outpatient (CLI) | payer OTHER, SELFPAY ==
--- NOTE | ~2020-09-22 | XR_ITS ---
EXAMINATION: XR chest 2V DATE: 09/22/2020 11:02 INDICATION: Unspecified acute lower respiratory infection TECHNIQUE: PA and lateral views of the chest are obtained. COMPARISON: None available FINDINGS: The lungs are hyperinflated but free of acute opacities. There is no pleural effusion or pn eumothorax. The cardiomediastinal silhouette is normal. The visualized bones and soft tissues are unr emarkable. Bilateral breast implants are noted. IMPRESSION: 1. Hyperinflation without acute cardiopulmonary abnormality. Reviewed, dictated and finalized at location A. T SAMPLER
== END ==
PROVIDERS: PCP Family Medicine; Visit Provider Physician Assistant
DX: J22 Unspecified acute lower respiratory infection (principal); R91.8 Other nonspecific abnormal finding of lung field
CPT/HCPCS: 71046

== ENCOUNTER 2020-11-16 13:31 | Outpatient (CLI) | payer OTHER, SELFPAY ==
--- NOTE | ~2020-11-16 | CT_ITS ---
EXAMINATION: CT sinus wo con DATE: 11/16/2020 13:48 INDICATION: Chronic sinusitis TECHNIQUE: Computed tomography (CT) of the paranasal sinuses was performed without contrast. Iterativ e reconstruction technique was employed. Exam dose: 292.34 mGy-cm total exam DLP. COMPARISON: 03/14/2020 CT brain FINDINGS: There is rightward deviation of the nasal septum. There is a nasal antral window on the rig ht. Possible small nasal antral windows on the left. The maxillary ostium and infundibulum are patent bilaterally. Opacification of the left ethmoid bulla . There is moderate mucoperiosteal thickening of the frontal sinuses and patchy soft tissue opacificati on of ethmoid center cells bilaterally, left greater than right. The maxillary and sphenoid sinuses are normally developed and aerated. The mastoid air cells are normally developed and aerated. Middle and inner ear apparatus appear karan l bilaterally. IMPRESSION: Rightward deviation of nasal septum Nasal antral windows, larger on the right Moderate mucoperiosteal thickening of the frontal sinuses and patchy left greater than right ethmoid air cell opacification Reviewed, dictated and finalized at Location A. Reviewed, dictated and finalized at location A. IMPRESSION: Rightward deviation of nasal septum Nasal antral windows, larger on the right Moderate mucoperiosteal thickening of the frontal sinuses and patchy left great er than right ethmoid air cell opacification
== END 2020-11-16 13:32 | disposition home or self-care (01) ==
PROVIDERS: PCP Family Medicine; Visit Provider Family Medicine
DX: J32.9 Chronic sinusitis, unspecified (principal); J34.2 Deviated nasal septum; Q30.3 Congenital perforated nasal septum
CPT/HCPCS: 70486

== ENCOUNTER → 2021-11-23 09:44 | Outpatient (CLI) | payer OTHER, SELFPAY ==
--- NOTE | ~2021-11-23 | XR_ITS ---
EXAMINATION: XR shoulder LT min 2V DATE: 11/23/2021 10:23 INDICATION: Left shoulder pain. TECHNIQUE: 4 views of left shoulder were obtained. COMPARISON: None. FINDINGS: Bone alignment is normal. No fracture. Glenohumeral joint is normal. There is mild acromioc lavicular joint osteoarthritis. Breast implants are noted. IMPRESSION: 1. Mild acromioclavicular joint osteoarthritis. Reviewed, dictated and finalized at location B.
--- NOTE | ~2021-11-23 | XR_ITS ---
EXAMINATION: XR chest 2V DATE: 11/23/2021 10:24 INDICATION: Chest pain. TECHNIQUE: Frontal and lateral views of the chest were obtained. COMPARISON: Chest 2 views 09/22/2020, neck CTA 03/17/2020 FINDINGS: The lungs are hyperexpanded, consistent with emphysema. No pleural effusion or pneumothorax . The heart size is normal. Breast implants are noted. IMPRESSION: 1. Emphysema. Reviewed, dictated and finalized at location B. IMPRESSION: 1. Emphysema.
== END ==
PROVIDERS: PCP Family Medicine; Visit Provider Family Medicine
DX: R07.9 Chest pain, unspecified (principal); M25.512 Pain in left shoulder; J43.9 Emphysema, unspecified; M19.012 Primary osteoarthritis, left shoulder
CPT/HCPCS: 71046; 73030

== ENCOUNTER 2021-12-21 07:56 | Outpatient (CLI) | payer OTHER, SELFPAY ==
--- NOTE | 2021-12-21 12:00 | WPDPFTINT ---
PFT Procedure Performed PFT Procedure Performed Plethysmography (Lung Vol) Diffusing Cap (DLCO) Flow Vol Loop Spirometry w/o Bronchodil PFT Interpretation Lung volumes were measured with the body plethysmography method. The elevated FRC and RV are indicative of air trapping. The elevated total lung capacity is indicative of lung hyperinflation. Spirometry showed severely diminished expiratory flow rates and a diminished FEV1 to FVC ratio of 28%, consistent with very severe obstructive airway disease. No post bronchodilator study was carried out. The lung diffusion capacity is severely reduced at 20% predicted. The flow volume loop is consistent with severe emphysema. Impression: Very severe obstructive airway disease with evidence of lung hyperinflation, and air trapping. Severely reduced lung diffusion capacity.
== END 2021-12-21 07:57 | disposition home or self-care (01) ==
LOC: ANHPFT 07:57
PROVIDERS: PCP Family Medicine; Visit Provider Family Medicine
DX: R06.09 Other forms of dyspnea (principal)
CPT/HCPCS: 94375; 94726; 94729

== ENCOUNTER 2022-02-25 13:45 | Outpatient (CLI) | payer OTHER, SELFPAY ==
--- NOTE | ~2022-02-25 | CT_ITS ---
EXAMINATION: CT diagnostic chest wo con DATE: 02/25/2022 14:34 INDICATION: COPD. Dyspnea. Evaluate for fibrosis. TECHNIQUE: Computed tomography (CT) of the chest was performed without intravenous contrast. The dose -length product was 149.93 mGy-cm. Automated exposure control and iterative reconstruction technique were employed. COMPARISON: None FINDINGS: No thoracic lymphadenopathy. No significant pleural or pericardial effusion. Borderline hea rt size. There are partially calcified bilateral breast implants. There is atherosclerosis of the aor ta and coronary arteries. There is severe emphysema. No endobronchial lesions. No focal airspace cons olidation. Small 2 mm right upper lobe nodule, likely benign. There is right lower lobe atelectasis/s carring. IMPRESSION: 1. Severe emphysema. 2 mm right upper lobe nodule, likely benign. Follow-up low dose screening CT [facility] st is recommended in 12 months. 2: Right lower lobe atelectasis/scarring. Reviewed, dictated and finalized at location L. IMPRESSION: 1. Severe emphysema. 2 mm right upper lobe nodule, likely benign. Follow-up low dose screening CT chest is recommended in 12 months. 2: Right lower lobe atelectasis/scarring.
== END 2022-02-25 13:46 | disposition home or self-care (01) ==
PROVIDERS: PCP Family Medicine; Visit Provider Physician Assistant
DX: J44.9 Chronic obstructive pulmonary disease, unspecified (principal); R06.00 Dyspnea, unspecified; I70.0 Atherosclerosis of aorta; R91.1 Solitary pulmonary nodule
CPT/HCPCS: 71250

== ENCOUNTER 2022-03-07 12:29 | Emergency (ER) | payer OTHER, SELFPAY ==
[2022-03-07 12:36] VITALS: BP 151/65; PULSE 80; RESP 18; TEMP 36.6; O2SAT 98
--- NOTE | 2022-03-07 12:54 | ED.FEMALEGU ---
HPI - Female Genitourinary General Chief complaint: Urogenital-Female Stated complaint: Possible UTI Time Seen by Provider: 03/07/22 12:54 Source: patient Mode of arrival: ambulatory Limitations: no limitations History of Present Illness HPI Narrative: 51-year-old female presents with complaint of urinary frequency, urgency, dysuria for 1 week. Reports she has now having discomfort to urethra when standing. States that she gets frequent UTIs. Last UTI was around February 08, was given Macrobid. Denies nausea vomiting diarrhea. No fever or chills. No abdominal or back pain. Systems reviewed and negative except as noted above. Related Data Allergies Allergy/AdvReac Type Severity Reaction Status Date / Time Sulfa (Sulfonamide AdvReac Mild Rash Verified 03/07/22 12:59 Antibiotics) Review of Systems Review of Systems: CONSTITUTIONAL: Denies fever, chills, or sweats. EYES: Denies visual changes, redness, or discharge. ENT: Denies rhinorrhea, congestion, sore throat, or otalgia. CARDIOVASCULAR: Denies chest pain, palpitations, or edema. RESPIRATORY: Denies cough or dyspnea. GASTROINTESTINAL: Denies abdominal pain, nausea, vomiting, or diarrhea. GENITOURINARY: Reports dysuria, urgency, frequency SKIN: Denies rash or itching. MUSCULOSKELETAL: Denies back pain, joint pain, or myalgia. NEUROLOGIC: Denies headache, numbness, or weakness. PSYCHIATRIC: Denies anxiety or depression. All other systems reviewed are negative, except as documented in HPI. [facility] Past Medical History Medical History Acute CVA (cerebrovascular accident) Essential (primary) hypertension Hyperlipidemia Hypothyroidism, unspecified Menometrorrhagia Nicotine dependence, unspecified, uncomplicated Relies on partner vasectomy for contraception Surgical History Surgical History History of breast augmentation Family History Family History Father Family history of lung cancer Mother Carcinoma of colon COPD (chronic obstructive pulmonary disease) Other Family history of emphysema Family history of malignant neoplasm of testis Family history of thyroid disease Social History Social History Smoking packs per day: 1 Smoking cigarettes per day: 20.0 Years smoked: 20 Smoking pack-years: 20.00 Smoking status: Former smoker (Quit 17 days ago) Tobacco type: cigarettes Second hand tobacco smoke exposure: Yes Alcohol intake: current Alcohol use details: seldom; socially Substance use: never Substance use type: does not use Additional living arrangements comments: Gender identity (if verbalized by the patient): Female Sexual Orientation (if Verbalized by the Patient): Straight or Heterosexual Spiritual care concerns: No Agree to blood products: No Comments At time of signature, agree with nursing past medical, surgical, social and family history. There is no relevant family history pertinent to the presenting complaint. Exam Narrative: GENERAL: This is a well-nourished, well-developed patient, in no apparent distress. HEAD: normocephalic, atraumatic. EYES: PERRL. Sclera clear/white. Vision is grossly intact. EARS: External ears normal NOSE: External nose normal NECK: Neck supple, non-tender without lymphadenopathy, masses or thyromegaly. CARDIOVASCULAR: Regular rate and rhythm without murmurs, gallops, or rubs. RESPIRATORY: Clear to auscultation. Breath sounds equal bilaterally. No wheezes, rales, or rhonchi. SKIN: warm, Dry, intact with no suspicious lesions or rash, good texture and turgor. NEURO: awake, alert, and oriented to person, place and time. There were no obvious focal neurologic abnormalities. EXTREMITIES: No joint tenderness, effusion, or jesse
== END 2022-03-07 13:07 | disposition home or self-care (01) ==
PROVIDERS: Emergency Provider Nurse Practitioner Family; PCP Family Medicine
DX: N39.0 Urinary tract infection, site not specified (principal); Z87.891 Personal history of nicotine dependence; I10 Essential (primary) hypertension; E78.5 Hyperlipidemia, unspecified; E03.9 Hypothyroidism, unspecified; Z86.73 Personal history of transient ischemic attack (TIA), and cerebral infarction without residual deficits
CPT/HCPCS: 81003; 87077; 87086; 87186; 99213; G0463

== ENCOUNTER 2022-07-22 00:32 | Day surgery (SDC) | payer OTHER, SELFPAY ==
[2022-07-11 12:59] VITALS: BMI 20.1
--- NOTE | 2022-07-21 09:52 | WPDANESEPPF ---
Anes - Initial Pre Proc Eval Procedure: Operation Date: 07/22/22 10:15 Proposed Procedures p Colonoscopy - Jamari Kay MD Date/Time: 07/21/22 09:52 Surgeon: Jamari Kay MD Pre Op Diagnosis: SUZANNE Patient Data Age: 52 Gender: F Height: 1.65 m Weight: 55 kg Allergies Allergy/AdvReac Type Severity Reaction Status Date / Time Sulfa (Sulfonamide AdvReac Mild Rash Verified 07/22/22 08:56 Antibiotics) Home Medications Medication Instructions Recorded Confirmed Type aspirin 81 mg tablet,delayed 81 mg PO QAM #30 tabs 03/19/20 07/11/22 Rx release levothyroxine 175 mcg capsule 175 mcg PO DAILY #30 caps 10/16/21 07/11/22 Rx metoprolol succinate 50 mg 50 mg PO DAILY #90 tabs 01/03/22 07/11/22 Rx tablet,extended release 24 hr albuterol sulfate 2.5 mg/3 mL 2.5 mg (3 mL) inhalation Q4-6H PRN 03/18/22 07/11/22 Rx (0.083 %) solution for nebulization shortness of breath or wheezing #75 mL montelukast 10 mg tablet 10 mg PO QHS #30 tabs 04/30/22 07/11/22 Rx Breztri Aerosphere 160 2 inh inhalation BID #10.7 grams 05/24/22 07/11/22 Rx mcg-9mcg-4.8mcg/actuation HFA aerosol inhaler (rfbfjoifcn-izzrdizk-frnaxbapyk) ergocalciferol (vitamin D2) 1,250 1,250 mcg PO WEEKLY #12 caps 06/10/22 07/11/22 Rx mcg (50,000 unit) capsule (Vitamin D2) atorvastatin 20 mg tablet 20 mg PO HS #30 tabs 06/23/22 07/11/22 Rx albuterol sulfate 90 mcg/actuation 1 inh inhalation Q4H PRN shortness 07/15/22 07/22/22 Rx aerosol inhaler of breath or wheezing #8.5 grams meloxicam 15 mg tablet 15 mg PO DAILY #30 tabs 07/19/22 07/22/22 Rx Patient hx anesthesia problems: none Family hx anesthesia problems: none Results Review: All pre-operative results and documents have been reviewed as part of the pre-operative evaluation. [facility] Past Medical History Medical History (Updated 06/13/22 @ 12:36 by Irlanda Gaitan MD) Acute CVA (cerebrovascular accident) Essential (primary) hypertension Hyperlipidemia Hypothyroidism, unspecified Iron deficiency anemia Menometrorrhagia Nicotine dependence, unspecified, uncomplicated Relies on partner vasectomy for contraception Surgical History Surgical History History of breast augmentation Family History Family History Father Family history of lung cancer Mother Carcinoma of colon COPD (chronic obstructive pulmonary disease) Other Family history of emphysema Family history of malignant neoplasm of testis Family history of thyroid disease Social History Social History Smoking packs per day: 2 Smoking cigarettes per day: 40.0 Years smoked: 40 Smoking pack-years: 80.00 Smoking status: Former smoker Tobacco type: cigarettes Second hand tobacco smoke exposure: Yes Alcohol intake: current Alcohol use details: socially Substance use: never Substance use type: does not use Living arrangements: with family Additional living arrangements comments: Gender identity (if verbalized by the patient): Female Sexual Orientation (if Verbalized by the Patient): Straight or Heterosexual Spiritual care concerns: No Agree to blood products: No Anes - Eval Final PreProcedure Day of Procedure 07/21/22 09:52 Patient weight: normal Heart: regular rate and rhythm Lungs: clear to auscultation and normal air movement Airway: Mallampati scale class II Neurological: alert and oriented Last oral intake: >/= 8 hours ASA classification: III Emergent: no Anesthetic plan: proceed Anesthesia type and monitoring: general GIVS Results Review: All pre-operative results and documents have been reviewed as part of the pre-operative evaluation. Informed Consent: The patient's anesthetic plan and its attendant risks and benefits
[2022-07-22 08:57] VITALS: BP 159/75; PULSE 93; RESP 20; TEMP 36.4; O2SAT 97; BMI 21.9
[2022-07-22] MEDS: LACTATED RINGERS 1,000 ML 150 ML IV CONT (09:06)
--- NOTE | 2022-07-22 09:44 | PM.HPGS ---
History of Present Illness History of Present Illness Consent: Risks, benefits, and alternatives have been discussed and questions answered. Patient agrees to proceed with procedure. Chief complaint: SUZANNE Narrative: Love Blake is a 52 year old female here for first screening colonoscopy Review of Systems Constitutional: Constitutional: Denies headache(s) and Denies weakness Eyes: Eyes: Denies blurry vision ENT: Reports Normal hearing present, Denies headache(s) and Denies neck pain Cardiovascular: Cardiovascular: Denies chest pain and Denies dyspnea Respiratory: Respiratory: Denies dyspnea Gastrointestinal: Gastrointestinal: Reports no additional gastrointestinal complaints Genitourinary: Genitourinary: Denies dysuria Musculoskeletal: Musculoskeletal: Denies neck pain Integumentary/Breasts: Skin/Breast: Denies dry skin Neurologic: Reports Normal hearing present, Denies headache(s) and Denies weakness Psychiatric: Psychiatric: Denies anxiety Endocrine: Endocrine: Denies change in body appearance Hematologic/Lymphatic: Hematologic/Lymphatic: Denies easy bleeding Allergic/Immunologic: Allergic/Immunologic: Denies urticaria PMF Past Medical History Medical History (Updated 07/22/22 @ 09:44 by Jamari Kay MD) Acute CVA (cerebrovascular accident) Colon cancer screening Essential (primary) hypertension Hyperlipidemia Hypothyroidism, unspecified Iron deficiency anemia Menometrorrhagia Nicotine dependence, unspecified, uncomplicated Relies on partner vasectomy for contraception Surgical History Surgical History History of breast augmentation Family History Family History Father Family history of lung cancer Mother Carcinoma of colon COPD (chronic obstructive pulmonary disease) Other Family history of emphysema Family history of malignant neoplasm of testis Family history of thyroid disease Social History Social History Smoking packs per day: 2 Smoking cigarettes per day: 40.0 Years smoked: 40 Smoking pack-years: 80.00 Smoking status: Former smoker Tobacco type: cigarettes Second hand tobacco smoke exposure: Yes Alcohol intake: current Alcohol use details: socially Substance use: never Substance use type: does not use Living arrangements: with family Additional living arrangements comments: Gender identity (if verbalized by the patient): Female Sexual Orientation (if Verbalized by the Patient): Straight or Heterosexual Spiritual care concerns: No Agree to blood products: No Meds Home Medications and Allergies Home Medications Medication Instructions Recorded Confirmed Type aspirin 81 mg tablet,delayed 81 mg PO QAM #30 tabs 03/19/20 07/11/22 Rx release levothyroxine 175 mcg capsule 175 mcg PO DAILY #30 caps 10/16/21 07/11/22 Rx metoprolol succinate 50 mg 50 mg PO DAILY #90 tabs 01/03/22 07/11/22 Rx tablet,extended release 24 hr albuterol sulfate 2.5 mg/3 mL 2.5 mg (3 mL) inhalation Q4-6H PRN 03/18/22 07/11/22 Rx (0.083 %) solution for nebulization shortness of breath or wheezing #75 mL montelukast 10 mg tablet 10 mg PO QHS #30 tabs 04/30/22 07/11/22 Rx Breztri Aerosphere 160 2 inh inhalation BID #10.7 grams 05/24/22 07/11/22 Rx mcg-9mcg-4.8mcg/actuation HFA aerosol inhaler (njeiddphkd-kfjktmpy-xyyrvvutra) ergocalciferol (vitamin D2) 1,250 1,250 mcg PO WEEKLY #12 caps 06/10/22 07/11/22 Rx mcg (50,000 unit) capsule (Vitamin D2) atorvastatin 20 mg tablet 20 mg PO HS #30 tabs 06/23/22 07/11/22 Rx albuterol sulfate 90 mcg/actuation 1 inh inhalation Q4H PRN shortness 07/15/22 07/22/22 Rx aerosol inhaler of breath or wheezing #8.5 grams meloxicam 15 mg tablet 15 mg PO DAILY #30 tabs 07/19/22 07/22/22
[2022-07-22 10:00] VITALS: BP 102/57; PULSE 86; RESP 29; O2SAT 98
[2022-07-22 10:10] VITALS: BP 113/40; PULSE 82; RESP 18; O2SAT 98
[2022-07-22 10:20] VITALS: BP 125/73; PULSE 80; RESP 23; O2SAT 100
--- NOTE | 2022-07-22 10:22 | SUR.PHASEII ---
07/22/[address] Alcaraz notified that patient's mother passed from colon cancer. Amending next colonoscopy to five years from 10 years. Chalino RIBERA
== END 2022-07-22 10:46 | disposition home or self-care (01) ==
PROVIDERS: PCP Family Medicine; Visit Provider Internal Medicine Gastroenterology
PROC: 0DJD8ZZ Inspection of Lower Intestinal Tract, Via Natural or Artificial Opening Endoscopic (ICD-10-PCS; CPT 45378; principal; 2022-07-22 10:15)
DX: Z12.11 Encounter for screening for malignant neoplasm of colon (principal); D50.9 Iron deficiency anemia, unspecified; I10 Essential (primary) hypertension; E78.5 Hyperlipidemia, unspecified; E03.9 Hypothyroidism, unspecified; Z87.891 Personal history of nicotine dependence; Z79.82 Long term (current) use of aspirin
CPT/HCPCS: 45378; J2704; J7120

== ENCOUNTER 2022-08-17 09:58 | Emergency (ER) | payer OTHER, SELFPAY ==
[2022-08-17 10:36] VITALS: BP 141/69; PULSE 85; RESP 18; TEMP 36.1; O2SAT 96
--- NOTE | 2022-08-17 11:12 | ED.URI ---
HPI - URI/Sore Throat General Chief Complaint: Upper Respiratory Infection Stated Complaint: cough,congestion Time Seen by Provider: 08/17/22 11:05 Source: patient Mode of arrival: ambulatory Limitations: no limitations History of Present Illness HPI Narrative: 52-year-old female history of COPD presented for complaint of cough and occasional shortness of breath with exertion over the last 3 days. She endorses family members are sick at home. She denies hemoptysis, wheezing, chest pain, lethargy, body aches, fevers or chills. She is not taking anything for symptoms.Endorses compliance with Breztri and uses prn albuterol. Related Data Home Medications Medication Instructions Recorded Confirmed budesonide 160 mcg-glycopyr 9 2 inh inhalation BID PRN Shortness 08/17/22 08/17/22 mcg-formot 4.8 mcg/actuation HFA Of Breath Or Wheezing inhaler (Breztri Aerosphere) Allergies Allergy/AdvReac Type Severity Reaction Status Date / Time Sulfa (Sulfonamide AdvReac Mild Rash Verified 08/17/22 10:56 Antibiotics) Review of Systems Review of Systems: per HPI All systems reviewed & are unremarkable except as noted in HPI and below PMFSH Past Medical History Medical History Acute CVA (cerebrovascular accident) Colon cancer screening Essential (primary) hypertension Hyperlipidemia Hypothyroidism, unspecified Iron deficiency anemia Menometrorrhagia Nicotine dependence, unspecified, uncomplicated Relies on partner vasectomy for contraception Surgical History Surgical History History of breast augmentation Family History Family History Father Family history of lung cancer Mother Carcinoma of colon COPD (chronic obstructive pulmonary disease) Other Family history of emphysema Family history of malignant neoplasm of testis Family history of thyroid disease Social History Social History Smoking packs per day: 2 Smoking cigarettes per day: 40.0 Years smoked: 40 Smoking pack-years: 80.00 Smoking status: Former smoker Tobacco type: cigarettes Second hand tobacco smoke exposure: Yes Alcohol intake: current Alcohol use details: socially Substance use: never Substance use type: does not use Additional living arrangements comments: Gender identity (if verbalized by the patient): Female Sexual Orientation (if Verbalized by the Patient): Straight or Heterosexual Spiritual care concerns: No Agree to blood products: No Comments At time of signature, I have reviewed and agree with nursing past medical, surgical, social and family history unless otherwise noted. Please see nursing chart for further information. There is no relevant family history pertinent to the presenting complaint Exam Narrative: GENERAL: Well-appearing, in no acute distress. EYES: EOMI. No redness or drainage. Conjunctivae normal. ENT: Mucous membranes pink and moist. No rhinorrhea. TMs normal bilaterally. Throat normal. Uvula midline. NECK: Normal AROM. Supple. CHEST: No respiratory distress. LCTAB HEART: Regular rate and rhythm. No murmur appreciated. ABDOMEN: Soft, nontender, nondistended, normal active bowel sounds. EXTREMITIES: Normal range of motion. No edema. SKIN: Warm, dry, no rash. Capillary refill normal. Normal skin turgor. NEURO: Alert and oriented x3. Gait steady. PSYCH: Normal affect. Course Course Emergency Course: Patient is aware of diagnosis, understands and agrees to treatment plan. Anticipatory guidance given. Patient agrees to follow-up as directed and is aware of reasons to seek care at the emergency department. Portions of this record may have been created with voice recognition software Level of Care: Express
== END 2022-08-17 11:20 | disposition home or self-care (01) ==
PROVIDERS: Emergency Provider Nurse Practitioner Family; PCP Family Medicine
DX: R05.9 Cough, unspecified (principal); Z87.891 Personal history of nicotine dependence; Z86.73 Personal history of transient ischemic attack (TIA), and cerebral infarction without residual deficits; I10 Essential (primary) hypertension; E78.5 Hyperlipidemia, unspecified; E03.9 Hypothyroidism, unspecified
CPT/HCPCS: 99213; G0463

== ENCOUNTER → 2022-12-13 15:36 | Outpatient (CLI) | payer OTHER, SELFPAY ==
--- NOTE | ~2022-12-13 | XR_ITS ---
EXAMINATION: XR chest 2V 12/13/2022 15:51 INDICATION: Chronic obstructive pulmonary disease PROCEDURE: 2 view chest COMPARISON: 11/23/2021 FINDINGS: The lungs are clear. The cardiomediastinal silhouette is within normal limits. There are no pleural effusions. There is no pneumothorax suspected. The lungs are hyperinflated which is consistent with, but not diagnostic of chronic obstructive pulmo nary disease. IMPRESSION: 1: NO ACUTE CARDIOPULMONARY DISEASE. Reviewed, dictated and finalized at location [facility].
== END ==
PROVIDERS: PCP Internal Medicine Critical Care Medicine; Visit Provider Internal Medicine Critical Care Medicine
DX: J44.9 Chronic obstructive pulmonary disease, unspecified (principal); R06.02 Shortness of breath
CPT/HCPCS: 71046

== ENCOUNTER 2023-02-27 08:27 | Outpatient (CLI) | payer OTHER, SELFPAY ==
--- NOTE | ~2023-02-27 | CT_ITS ---
CT Scan of the Chest without Contrast: Clinical Indication: Lung cancer screening, personal history of nicotine dependence Technique: Contiguous sections were acquired throughout the chest without intravenous contrast. Dose reduction technique was used on this scan by utilizing automated exposure control and iterative recon struction technique. The dose-length product (DLP) was 67.71 mGy-cm. COMPARISON: 02/25/2022 Findings: There is no evidence of any significant mediastinal, hilar or axillary lymphadenopathy. Main pulmonar y artery is dilated to 4 cm. There is no evidence of pleural or pericardial effusion. Severe emphysema noted. No pulmonary nodule seen. Images through the upper abdomen reveal probable small hepatic cysts, unchanged. Impression: Lung RADS 1: Negative. 12 month follow-up screening CT advised. Severe emphysema. Main pulmonary artery is dilated to 4 cm. Consider pulmonary artery hypertension. Reviewed, dictated and finalized at [facility]. Impression: Lung RADS 1: Negative. 12 month follow-up screening CT advised. Severe emphysema. Main pulmonary artery is dilated to 4 cm. Consider pulmonary artery hypertensio n.
== END 2023-02-27 08:28 | disposition home or self-care (01) ==
PROVIDERS: PCP Family Medicine; Visit Provider Nurse Practitioner Family
DX: Z12.2 Encounter for screening for malignant neoplasm of respiratory organs (principal); Z87.891 Personal history of nicotine dependence; J43.9 Emphysema, unspecified; I28.8 Other diseases of pulmonary vessels
CPT/HCPCS: 71271